=== PATIENT | female | born 1960 | race Caucasian/White ===

== ENCOUNTER 2017-10-12 16:00 | Outpatient (RCR) | payer OTHER | END 2017-10-13 12:59 | disposition home or self-care (01) | LOC: MKS.ESL.OT 16:00 | DX: S42.401D Unspecified fracture of lower end of right humerus, subsequent encounter for fracture with routine healing (principal) ==

== ENCOUNTER 2018-11-17 14:22 | Emergency (ER) | payer OTHER ==
[~2018-11-17] VITALS: Ht 172.7 cm; Wt 61.4 kg
[2018-11-17 14:25] VITALS: TEMP 100.2
[2018-11-17 15:08] LABS: BASO % 0.3 % (0.0-2.0); EOS % 0.2 % (0-4.0); GRAN # 14.2 (1.4-6.5); GRAN % 89.1 % (42.2-75.2); HEMATOCRIT 40.4 % (37.0-47.0); HEMOGLOBIN 13.6 g/dl (12.5-16.0); LYMPH % 6.1 % (20.0-51.0); MEAN CELL VOLUME 95 fl (80.0-100.0); MEAN CORPUSCULAR HEMOGLOBIN 32 pg (27.0-31.0); MEAN CORPUSCULAR HGB CONC 34 g/dl (33.0-37.0); MEAN PLATELET VOLUME 10.3 fl (7.4-10.4); MONO # 0.6 (0.1-0.6); MONO % 3.9 % (1.7-9.3); PLATELET COUNT 299 K/mm3 (130-400); RED BLOOD COUNT 4.25 M/mm3 (4.10-5.30); REDCELL DISTRIBUTION WIDTH-CV 12.5 % (11.5-14.5)
[2018-11-17 15:23] LABS: ALBUMIN 4.7 gm/dL (3.5-5.0); BILIRUBIN,TOTAL 0.5 mg/dL (0.0-1.0); CALCIUM 9.6 mg/dL (8.4-10.2); CREATININE, serum 0.74 (0.52-1.25); POTASSIUM 3.8 mmol/L (3.4-5.0); TOTAL PROTEIN 7.8 gm/dL (6.4-8.2)
[2018-11-17 15:40] LABS: COLLECTION METHOD CLEAN CATCH
[2018-11-17 15:47] LABS: PH 5 (5-8); SQUAMOUS EPITHELIAL None Seen /hpf; URINE APPEARANCE Clear; URINE BACTERIA None Seen /hpf; URINE BILIRUBIN Negative (NEGATIVE); URINE BLOOD Negative (NEGATIVE); URINE COLOR Yellow; URINE GLUCOSE Negative (NEGATIVE); URINE KETONE 1+ (NEGATIVE); URINE LEUKOCYTE ESTERASE Negative (NEGATIVE); URINE NITRATE Negative (NEGATIVE); URINE PROTEIN(semi-quant) Negative (NEGATIVE); URINE RBC 0-2 /hpf; URINE UROBILINOGEN Negative (NEGATIVE)
[2018-11-17 15:53] LABS: TSH w REFLEX 1.06 uIU/mL (0.465-4.680)
[2018-11-17 16:20] VITALS: BP 147/84; PULSE 104
== END 2018-11-17 16:20 | disposition home or self-care (01) ==
LOC: COL.ER 14:22
PROVIDERS: Emergency Medicine
DX: R00.2 Palpitations (principal); Z87.81 Personal history of (healed) traumatic fracture
CPT/HCPCS: J7030

== ENCOUNTER → 2018-12-04 | Outpatient (CLI) | payer OTHER | LOC: COL.RAD 11-27 08:00 | DX: R00.0 Tachycardia, unspecified (principal); R91.8 Other nonspecific abnormal finding of lung field | CPT/HCPCS: Q9967 ==

== ENCOUNTER 2019-01-20 18:11 | Emergency (ER) | payer OTHER ==
[~2019-01-20] VITALS: Ht 175.3 cm; Wt 59.1 kg
[2019-01-20 18:15] VITALS: BP 137/85; TEMP 98
[2019-01-20] MEDS ORDERED: INDOCIN 25MG CA25 MG PO (18:33)
[2019-01-20] MEDS ORDERED: MEDROL 4MG DOSPA4 MG PO (19:07)
[2019-01-20 19:08] VITALS: PULSE 88
== END 2019-01-20 19:08 | disposition home or self-care (01) ==
LOC: COL.ER 18:11
DX: M77.9 Enthesopathy, unspecified (principal)
CPT/HCPCS: J1885

== ENCOUNTER 2019-01-29 09:45 | Outpatient (RCR) | payer OTHER ==
[~2019-01-29 09:45] MED LIST: INDOCIN 25MG CA25 MG PO; MEDROL 4MG DOSPA4 MG PO
== END 2019-03-27 ==
LOC: MKS.ESL.PT
DX: M76.71 Peroneal tendinitis, right leg (principal)

== ENCOUNTER 2019-10-13 21:08 | Emergency (ER) | payer OTHER ==
[~2019-10-13] VITALS: Ht 172.7 cm; Wt 60.5 kg
[2019-10-13 21:17] VITALS: BP 136/82; TEMP 98.1
[2019-10-13 22:05] VITALS: PULSE 82
== END 2019-10-13 22:05 | disposition home or self-care (01) ==
LOC: COL.ER 21:08
DX: F41.9 Anxiety disorder, unspecified (principal); Z88.2 Allergy status to sulfonamides

== ENCOUNTER 2019-10-14 09:26 | Emergency (ER) | payer OTHER ==
[~2019-10-14] VITALS: Ht 172.7 cm; Wt 60.5 kg
[2019-10-14 09:32] VITALS: TEMP 97.7
[2019-10-14 10:25] LABS: BASO # 0.1 (0.0-0.2); BASO % 0.9 % (0.0-2.0); EOS # 0.1 (0.0-0.7); EOS % 1.3 % (0-4.0); GRAN % 56.6 % (42.2-75.2); HEMATOCRIT 39.4 % (37.0-47.0); HEMOGLOBIN 13.2 g/dl (12.5-16.0); LYMPH # 1.9 (1.2-3.4); LYMPH % 34.8 % (20.0-51.0); MEAN CELL VOLUME 96 fl (80.0-100.0); MEAN CORPUSCULAR HEMOGLOBIN 32 pg (27.0-31.0); MEAN CORPUSCULAR HGB CONC 34 g/dl (33.0-37.0); MEAN PLATELET VOLUME 9.8 fl (7.4-10.4); MONO # 0.3 (0.1-0.6); PLATELET COUNT 311 K/mm3 (130-400); RED BLOOD COUNT 4.09 M/mm3 (4.10-5.30); REDCELL DISTRIBUTION WIDTH-CV 12.2 % (11.5-14.5)
[2019-10-14 10:40] LABS: ALANINE AMINOTRANSFERASE 28 U/L (9-52); ALBUMIN 4.2 gm/dL (3.5-5.0); ALKALINE PHOSPHATASE 50 U/L (50-136); ANION GAP 8 mmol/L (7-16); AST,SGOT 27 U/L (15-37); BILIRUBIN,TOTAL 0.4 mg/dL (0.0-1.0); BLOOD UREA NITROGEN 8 mg/dL (7-17); CALCIUM 9.4 mg/dL (8.4-10.2); CARBON DIOXIDE 27 mmol/L (22-30); CHLORIDE 107 mmol/L (98-107); CREATININE, serum 0.54 (0.52-1.25); GLUCOSE 116 mg/dL (74-106); POTASSIUM 3.8 mmol/L (3.4-5.0); SODIUM 142 mmol/L (137-145); TOTAL PROTEIN 7.3 gm/dL (6.4-8.2)
[2019-10-14 10:54] LABS: TROPONIN-I < 0.012 ng/mL (0.000-0.035)
[2019-10-14 11:01] LABS: MAGNESIUM 2.5 mg/dL (1.6-2.3); PHOSPHOROUS 3.1 mg/dL (2.5-4.5)
[2019-10-14 11:35] VITALS: BP 136/72; PULSE 80
== END 2019-10-14 11:35 | disposition home or self-care (01) ==
LOC: COL.ER 09:26
PROVIDERS: Emergency Medicine
DX: R00.2 Palpitations (principal)
CPT/HCPCS: J7030

== ENCOUNTER → 2020-05-30 | Outpatient (CLI) | payer OTHER | LOC: COL.RAD 07:13 | DX: M51.36 Other intervertebral disc degeneration, lumbar region (principal); M48.061 Spinal stenosis, lumbar region without neurogenic claudication; M47.816 Spondylosis without myelopathy or radiculopathy, lumbar region ==

== ENCOUNTER → 2020-06-25 | Outpatient (CLI) | payer OTHER | LOC: MHCPAIN 07:52 | DX: M47.817 Spondylosis without myelopathy or radiculopathy, lumbosacral region (principal); M99.04 Segmental and somatic dysfunction of sacral region; M54.17 Radiculopathy, lumbosacral region | CPT/HCPCS: G0463 ==

== ENCOUNTER → 2020-07-21 | Outpatient (CLI) | payer OTHER | LOC: MHCPAIN 09:22 | DX: M25.551 Pain in right hip (principal); M79.18 Myalgia, other site; M70.61 Trochanteric bursitis, right hip | CPT/HCPCS: J1040 ==

== ENCOUNTER → 2020-08-04 | Outpatient (CLI) | payer OTHER | LOC: MHCPAIN 09:30 | DX: M47.816 Spondylosis without myelopathy or radiculopathy, lumbar region (principal); M54.5 Low back pain; M53.3 Sacrococcygeal disorders, not elsewhere classified; G89.29 Other chronic pain | CPT/HCPCS: G0463 ==

== ENCOUNTER → 2020-08-11 | Outpatient (CLI) | payer OTHER | LOC: MHCPAIN 13:05 | DX: M47.817 Spondylosis without myelopathy or radiculopathy, lumbosacral region (principal); Q76.49 Other congenital malformations of spine, not associated with scoliosis; M54.5 Low back pain ==

== ENCOUNTER → 2020-08-25 | Outpatient (CLI) | payer OTHER | LOC: MHCPAIN 09:18 | DX: M47.816 Spondylosis without myelopathy or radiculopathy, lumbar region (principal); M54.5 Low back pain; M53.3 Sacrococcygeal disorders, not elsewhere classified | CPT/HCPCS: G0463 ==

== ENCOUNTER → 2020-08-28 | Outpatient (CLI) | payer OTHER | LOC: MHCPAIN 09:22 | DX: M47.817 Spondylosis without myelopathy or radiculopathy, lumbosacral region (principal); M54.5 Low back pain ==

== ENCOUNTER → 2020-09-02 | Outpatient (CLI) | payer OTHER | LOC: MHCPAIN 09:32 | DX: M47.816 Spondylosis without myelopathy or radiculopathy, lumbar region (principal); M54.5 Low back pain; M53.3 Sacrococcygeal disorders, not elsewhere classified; G89.29 Other chronic pain | CPT/HCPCS: G0463 ==

== ENCOUNTER → 2020-10-06 | Outpatient (CLI) | payer OTHER | LOC: MHCPAIN 13:01 | DX: M47.817 Spondylosis without myelopathy or radiculopathy, lumbosacral region (principal); M54.5 Low back pain; M53.3 Sacrococcygeal disorders, not elsewhere classified | CPT/HCPCS: J1100; J2250; J3010 ==

== ENCOUNTER 2020-12-10 10:00 | Outpatient (RCR) | payer OTHER | END 2020-12-16 | disposition still patient (30) | LOC: WSPT | DX: M16.11 Unilateral primary osteoarthritis, right hip (principal) ==

== ENCOUNTER 2021-12-02 22:20 | Emergency (ER) | payer OTHER ==
[~2021-12-02] VITALS: Ht 175.3 cm; Wt 61.4 kg
[2021-12-03 00:14] VITALS: BP 159/94; PULSE 89; TEMP 97.8
== END 2021-12-03 00:14 | disposition home or self-care (01) ==
LOC: COL.ER 22:20
DX: S83.92XA Sprain of unspecified site of left knee, initial encounter (principal); W10.9XXA Fall (on) (from) unspecified stairs and steps, initial encounter; Y93.01 Activity, walking, marching and hiking; Y92.039 Unspecified place in apartment as the place of occurrence of the external cause